=== PATIENT | male | born 1970 | race Caucasian/White ===

== ENCOUNTER → 2023-01-31 | Outpatient (CLI) | payer OTHER | END | disposition home or self-care (01) | LOC: MRI 12:53 | PROVIDERS: ATTEND Physician Assistant | DX: G43.711 Chronic migraine without aura, intractable, with status migrainosus (principal) ==

== ENCOUNTER 2024-03-19 13:48 | Emergency (ER) | payer OTHER, BC ==
[~2024-03-19] VITALS: Ht 187.9 cm; Wt 120.2 kg
[2024-03-19] MEDS ORDERED: AMLODIPINE BESY10 MG PO (14:04)
[2024-03-19] MEDS ORDERED: EZALLOR SPRINKL10 MG PO (14:05)
[2024-03-19] MEDS ORDERED: VALSARTAN-HCTZ1 EAC1 PO (14:06)
[2024-03-19] MEDS ORDERED: NEXIUM40 MG PO (14:07)
[2024-03-19 14:44] LABS: BASO # 0.1 10*3/uL (0.0-0.1); BASO % 0.8 % (0.0-1.0); EOS # 0.3 10*3/uL (0.0-0.4); EOS % 5.5 % (1.0-4.0); LYMPH # 1.5 10*3/uL (1.3-4.4); MEAN CORPUSCULAR HGB 32.1 pg (27.0-31.0); MEAN CORPUSCULAR HGB CONC 34.1 g/dl (33.0-37.0); MEAN PLATELET VOLUME 8.5 fl (9.6-12.3); MONO # 0.5 10*3/uL (0.1-1.0); MONO % 8.4 % (3.0-9.0); NEUT # 3.8 10*3/uL (2.3-7.9); NEUT % 61.1 % (47.0-73.0); PLATELET COUNT AUTOMATED 260 10*3/uL (130-400); RED BLOOD COUNT 4.36 10*6/uL (4.50-5.90); RED CELL DISTRI WIDTH 12.1 % (0-14.5); WHITE BLOOD COUNT 6.2 10*3/uL (4.8-10.8)
[2024-03-19] MEDS ORDERED: IOHEXOL 350 MG/ML 100 ML VIAL IV ONE (14:45)
[2024-03-19] MEDS ORDERED: SODIUM CHLORIDE 0.9% 100 ML BAG IV ONE (14:45)
[2024-03-19 14:55] LABS: ACT PARTIAL THROMBO TIME 25.3 SECONDS (20.0-32.1)
[2024-03-19 14:59] LABS: BUN 21 mg/dl (9-23); CHLORIDE 108 mmol/L (98-107); POTASSIUM 3.7 mmol/L (3.4-5.1)
== END 2024-03-19 17:27 | disposition home or self-care (01) ==
LOC: ED 13:48
PROVIDERS: Physician Assistant Medical
DX: E86.0 Dehydration (principal); R53.1 Weakness; R42 Dizziness and giddiness; R25.2 Cramp and spasm; I10 Essential (primary) hypertension; Z79.899 Other long term (current) drug therapy